=== PATIENT | male | born 1975 | race Hispanic/Latino ===

== ENCOUNTER 2018-06-29 09:03 | Emergency (ER) | payer BC, OTHER, SELFPAY ==
--- NOTE | 2018-06-29 10:28 | RAD ---
LEFT LEG 2 VIEWS: HISTORY: Injury, left leg pain. FINDINGS/IMPRESSION: The left tibia and fibula are intact. POS: [email or web address]
--- NOTE | 2018-06-29 10:33 | ULT ---
VENOUS DOPPLER ULTRASOUND OF THE LEFT LOWER EXTREMITY: HISTORY: Injuries, edema, left leg pain. TECHNIQUE: Riddle scale, color flow, and spectral Doppler imaging of the deep venous system of the left lower extr emity is performed. FINDINGS: There is good flow, compression, and augmentation noted in the left common femoral, femoral, deep fem oral, popliteal, posterior tibial, and greater saphenous veins. IMPRESSION: No evidence of deep vein thrombosis in the left lower extremity. POS: [email or web address]
== END 2018-06-29 10:51 | disposition home or self-care (01) ==
LOC: SCSER 09:03
DX: S86.812A Strain of other muscle(s) and tendon(s) at lower leg level, left leg, initial encounter (principal); F17.210 Nicotine dependence, cigarettes, uncomplicated; W17.89XA Other fall from one level to another, initial encounter